=== PATIENT | female | born 1965 | race African-American/Black ===

== ENCOUNTER 2020-09-08 13:31 | Emergency (ER) | payer OTHER ==
[2020-09-08 17:03] LABS: ALBUMIN 4.1 g/dL (3.4-5.0); BASOPHIL 0.3 % (0-2); BILIRUBIN NEGATIVE (NEGATIVE); BILIRUBIN - TOTAL 0.4 mg/dL (0.2-1.0); BLOOD NEGATIVE Ery/uL (NEGATIVE); BUN/CREAT RATIO (CALC) 22.6 RATIO; CLARITY CLEAR (CLEAR); COLOR YELLOW (YELLOW); CREATININE 0.62 mg/dL (0.51-0.95); EOSINOPHIL 1.2 % (0-5); GLOBULIN (CALCULATION) 3.9 g/dL; GLUCOSE (U) NORMAL (NORMAL); HGB 14.3 g/dl (12.5-16.0); LEUKOCYTES NEGATIVE Leu/uL (NEGATIVE); LYMPHOCYTE 37.1 % (15-48); MCH 29.2 pg (25.0-31.0); MCHC 31.8 g/dL (32.0-36.0); MONOCYTE 11.6 % (0-12); MPV 10.1 fL (6.0-9.5); NEUTROPHIL 49.5 % (41-80); NITRITE NEGATIVE (NEGATIVE); NRBC 0; PLT 270 K/uL (150-400); POTASSIUM 3.8 mmol/L (3.5-5.1); PROTEIN NEGATIVE (NEGATIVE); RBC 4.89 M/uL (4.20-5.40); RDW 13.9 % (11.5-14.0); UROBILINOGEN 0.2 mg/dL (0.2-1.0); WBC 6.6 K/uL (4.0-10.5); pH 5.5 (5.0-9.0)
== END 2020-09-08 19:48 | disposition home or self-care (01) ==
LOC: FER 13:31
PROVIDERS: Nurse Practitioner Family
DX: U07.1 COVID-19 (principal); E11.9 Type 2 diabetes mellitus without complications; I10 Essential (primary) hypertension
CPT/HCPCS: 36415; 71275; 80053; 81003; 85025; 85379; J1885; J7030; J7050; M0239; Q9967